=== PATIENT | male | born 1945 | race Caucasian/White ===

== ENCOUNTER → 2022-03-17 11:02 | Outpatient (CLI) | payer MEDICARE, OTHER, SELFPAY ==
--- NOTE | 2022-03-17 | DI.US.S_ITS ---
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 COMPARISON: None. FINDINGS: Stenosis calculations are based on SRU (Society of Radiologists in Ultrasound) criteria. The flow velocities and the arterial waveforms are normal within both carotid arterial systems. Atherosclerotic plaque is seen on both sides. The estimated degree of internal carotid artery stenosis is less than 50%. Antegrade flow is confirmed within both vertebral arteries. IMPRESSION: No hemodynamically significant stenosis is seen. Atherosclerotic plaque is noted bilaterally. Dictated by: Dewayne Arroyo M.D. on 03/17/2022 at 11:32 Approved by: Dewayne Arroyo M.D. on 03/17/2022 at 11:33
== END ==
PROVIDERS: Family Provider Family Medicine; PCP Family Medicine; Referring Provider Family Medicine; Visit Provider Family Medicine
DX: I25.10 Atherosclerotic heart disease of native coronary artery without angina pectoris; I65.23 Occlusion and stenosis of bilateral carotid arteries
CPT/HCPCS: 93880

== ENCOUNTER → 2023-04-16 10:16 | Outpatient (CLI) | payer MEDICARE, OTHER, SELFPAY ==
--- NOTE | 2023-04-16 | DI.CT.S_ITS ---
PROCEDURE: CT HEAD/BRAIN WO CON INDICATIONS: DIZZINESS TECHNIQUE: Noncontrast 4.5 mm thick angled axial sections acquired from the foramen magnum to the vertex, with coronal and sagittal reformats. For radiation dose reduction, the following was used: automated exposure control, adjustment of mA and/or kV according to patient size. COMPARISON: None. FINDINGS: Image quality: Excellent. CSF spaces: Basal cisterns are patent. No extra-axial fluid collections. The ventricles are symmetric in size and shape. Brain: No intracranial bleeds or masses. There is cerebral volume loss for age, with resultant ventricular and sulcal prominence. There are periventricular and deep white matter chronic small vessel ischemic changes. There is intracranial internal carotid artery atherosclerosis. Skull and face: Calvarium and visualized facial bones appear intact, without suspicious lesions. Sinuses: Visualized sinuses and mastoids are clear. IMPRESSION: Noncontrast head CT within normal limits for age, without a cause of dizziness identified. If it would be helpful for clinical management decision making, please consider a dedicated, scheduled brain MRI (IAC protocol, without and with contrast) for further evaluation (assuming that there is no contraindication). Dictated by: Dewayne Arroyo M.D. on 04/16/2023 at 13:41 Approved by: Dewayne Arroyo M.D. on 04/16/2023 at 13:42
== END ==
PROVIDERS: Family Provider Family Medicine; PCP Family Medicine; Referring Provider Family Medicine; Visit Provider Family Medicine
DX: R42 Dizziness and giddiness (principal)
CPT/HCPCS: 70450

== ENCOUNTER → 2024-02-29 08:44 | Outpatient (CLI) | payer MEDICARE, OTHER, SELFPAY ==
--- NOTE | 2024-03-01 01:44 | DI.NM.S_ITS ---
DATE OF SERVICE: 02/29/2024 PROCEDURE: Exercise treadmill stress and rest myocardial perfusion study with gating to assess ejection fraction and regional wall motion. ORDERING PHYSICIAN: Juan Gonzalez MD INDICATIONS: The patient is a 78-year-old male smoker with a history of percutaneous revascularization, who now presents with exertional dyspnea and atypical chest discomfort. EXERCISE TREADMILL TESTING: The patient was able to exercise for 7 minutes 11 seconds on a standard Jonnathan protocol, suggesting very good exercise capacity with an NEIL of -23%, achieving 10.1 METS. He had a normal heart rate and blood pressure response to exercise, achieving a maximum heart rate of 129 BPM (91% of his predicted maximum). He had no chest discomfort or other anginal symptoms. His resting ECG showed sinus rhythm with low QRS voltage and right axis deviation with associated T-wave inversions in the lateral leads. With stress, there were no significant ST-segment shifts. He had occasional PVCs, most notably in recovery, but no complex ventricular ectopy. At 6 minutes 15 seconds of exercise, at a heart rate of 120 BPM, 27.4 millicuries of technetium-99m Myoview was injected and he was imaged 15 minutes later using a gated SPECT acquisition protocol. Earlier in the day while at rest, he had been injected with 11.8 millicuries of technetium- 99m Myoview and was imaged 15 minutes later, again using a gated SPECT acquisition protocol. FINDINGS: 1. Raw data. There is fairly good myocardial tracer uptake. The lung/heart ratio is normal at 0.23 with a normal TID ratio of 0.72. 2. Quantitated gated SPECT: Post-stress ejection fraction is estimated at 72% without any focal wall motion abnormality, and specifically the interventricular septum has normal contractility. The resting ejection fraction is 63% with a normal resting end-diastolic volume of 105 mL. 3. Myocardial perfusion imaging: Post-stress supine images show a fairly normal myocardial perfusion pattern except a subtle defect in the mid interventricular septum in an unusual distribution for coronary disease, and completely resolves on the prone images, suggesting an attenuation artifact. The resting images show an identical perfusion pattern with no significant improvement in the septal defect, supporting that it is an attenuation artifact. IMPRESSION: 1. Normal myocardial perfusion study. 2. Small, subtle, fixed mid septal defect that likely reflects an attenuation artifact given its complete resolution on the prone images. There is no compelling evidence for any myocardial ischemia or previous infarction. 3. Normal left ventricular size and systolic function. 4. Very good exercise capacity without angina or ECG evidence of ischemia. Right axis deviation with associated T-wave inversions were noted at rest. He had occasional PVCs, most notably in recovery, but no complex ventricular ectopy. Moris Thompson - /vera/ doc#: [id number]/job#: [id number] dd: 02/29/2024 16:51:00 dt: 03/01/2024 01:23:00 DICTATING /COPIES TO: Juan Turner MD; Juan Gonzalez MD COPIES MNE: MYLES;
== END ==
PROVIDERS: Family Provider Family Medicine; PCP Family Medicine; Referring Provider Internal Medicine Interventional Cardiology; Visit Provider Internal Medicine Interventional Cardiology
DX: I25.10 Atherosclerotic heart disease of native coronary artery without angina pectoris (principal)
CPT/HCPCS: 78452; 93017; A9502

== ENCOUNTER → 2025-03-10 13:23 | Outpatient (CLI) | payer MEDICARE, OTHER, SELFPAY ==
--- NOTE | 2025-03-10 13:27 | DI.RAD.S_ITS ---
PROCEDURE: XR DEXA AXIAL SKELETON INDICATIONS: SCREENING FOR OSTEOPOROSIS COMPARISON: [facility], [place], DEXA AXIAL SKELETON, 09/06/2017, 13:16. FINDINGS: Lumbar Spine: Bone mineral density 0.535 (previously 0.774) g/cm2, T score -4.9 (previously -3.7). Left Femoral Neck: Bone mineral density 0.407 (previously 0.659) g/cm2, T score -4.0 (previously -3.2). Left Hip: Bone mineral density 0.446 (previously 0.626) g/cm2, T score -4.1 (previously -3.3). Fracture Risk Calculation (when applicable): 10-year fracture risk of a major osteoporotic fracture 16 percent and of a hip fracture 9.9 percent. (T score greater or equal to -1.0 to: NORMAL) (T score from -1.1 to -2.4: OSTEOPENIA) (T score less than or equal to -2.5: OSTEOPOROSIS) IMPRESSION: Osteoporosis--- recommend repeat DEXA in 2 years or less for reassessment of response to treatment. Follow-up guidelines as follows: Osteoporosis: Consider a repeat DEXA and Vertebral Fracture Assessment (VFA) exam in 2 years or sooner if medically necessary, to reassess this patient's status. Osteopenia: Consider a repeat DEXA in 2-3 years to reassess this patient's status, or if there is a new clinical indication. Normal: Consider a repeat DEXA in 5 years or sooner, or if there is a new clinical indication. All treatment decisions require clinical judgment and consideration of individual patient factors, including patient preferences, comorbidities, previous drug use, risk factors not captured in the FRAX model (e.g., frailty, falls, vitamin D deficiency, increased bone turnover, interval significant decline in bone density ) and possible under- or over-estimation of fracture risk by FRAX. In addition, the NOF Guide recommends that FDA-approved medical therapies be considered in postmenopausal women and men age >= 50 years with a: * Hip or vertebral (clinical or morphometric) fracture * T-score of <=-2.5 at the spine or hip * Ten-year fracture probability by FRAX of >= 3% for hip fracture or >=20% for major osteoporotic fracture. Dictated by: Ranjeet Osman M.D. on 03/10/2025 at 20:07 Approved by: Ranjeet Osman M.D. on 03/10/2025 at 20:11
== END ==
PROVIDERS: Family Provider Family Medicine; PCP Family Medicine; Referring Provider Family Medicine; Visit Provider Family Medicine
DX: M81.0 Age-related osteoporosis without current pathological fracture (principal)
CPT/HCPCS: 77080